=== PATIENT | female | born 1940 | race Two or more races ===

== ENCOUNTER 2017-09-26 12:51 | Inpatient (IN) | payer MEDICARE, OTHER ==
[~2017-09-26] VITALS: Ht 157.5 cm; Wt 68.9 kg
[2017-09-26] MEDS ORDERED: LORA0.5T (20:09)
[2017-09-26] MEDS ORDERED: GEMF600T3 PO (20:09)
[2017-09-26] MEDS ORDERED: MELO-105 (20:09)
[2017-09-26] MEDS ORDERED: OMEP20CA10 (20:09)
[2017-09-26] MEDS ORDERED: LEVO125T8 (20:16)
[2017-09-26] MEDS ORDERED: NITR1PAT66 (20:16)
[2017-09-26] MEDS ORDERED: ASPI-1169 (20:16)
[2017-09-26] MEDS ORDERED: TEMA30CA (20:16)
[2017-09-26] MEDS ORDERED: ISOS40TA12 (20:16)
[2017-09-26] MEDS ORDERED: BUPR-51 (20:16)
[2017-09-26] MEDS ORDERED: METO-358 (20:16)
[2017-09-26] MEDS ORDERED: HYDR-3972 (20:16)
[2017-09-26] MEDS ORDERED: FLUT16SP (20:16)
[2017-09-26] MEDS ORDERED: AMLO2.5T (20:16)
[2017-09-26] MEDS ORDERED: TRAZ-144 (20:16)
[2017-09-26] MEDS ORDERED: DIAZ5TAB4 (20:16)
[2017-09-26] MEDS ORDERED: QUET25TA (20:16)
[2017-09-26 20:30] VITALS: BP 184/68
[2017-09-26] MEDS ORDERED: MAGNESIUM HYDROXIDE 30 ML UDC PO PRN (21:30)
[2017-09-26] MEDS ORDERED: MAG HYDROX/AL HYDROX/SIMETH 30 ML UDC PO PRN (21:30)
[2017-09-26] MEDS ORDERED: TEMAZEPAM 15 MG CAPSULE PO PRN (22:00)
[2017-09-26] MEDS: METOPROLOL SUCCINATE 50 MG TAB.SR.24H PO SCH (22:00)
[2017-09-26 22:25] VITALS: BP 134/70
--- NOTE | 2017-09-27 01:27 | NUR ---
ADMISSION NOTES ADMITTED THIS 77Y/O FEMALE PATIENT ADMIT [facility]/ PT. IS ON 5150 HOLD FOR GD ,DTO , PER HOLD PT. IS CONFUSED, DISORGNIZE ,YELLING SCREAMING HITTING CAREGIVER , UPON FACE TO FACE ASSESSMENT PATIENT IS A&O X1,2 DISORGNIZE THOUGHTS AGRESSIVE YELLING PARANOID , PT. IS POOR HISTORIAN, POOR INSIGHT ,POOR JUDGEMENT , POOR HYGINE V/S WNL, NO ACUTE DISTRESS NOTED, HX OF BIPOLAR DISORDER ,INSOMNIA MAJOR DEPRESSIVE OSTEOARTHRITIS, HTN , HYPERLIPIDEMIA, HYPOTHYROIDISM , MD AWARE AND NOTIFIED OF THE ADMISSION, SKIN ASSESSMENT DONE . PICTURE TAKEN AND PLACED IN THE CHART, ENCOURAGED PT. VERBALIZED ANY FEELING CONCERN TO STAFF, ORIENT TO UNIT POLICY, WILL CONTINUE TO MONITOR FOR Q15 SAFETY AND BEHAVIOR.
--- NOTE | 2017-09-27 01:37 | NUR ---
GPS RN NOTES PT. REFUSED NIGHT MEDS TOPROL 100 MG ,AND REFUSED ACCU CHECK ,UPON ADMISSION, ENCOURAGED EXPLIANE RISKS AND BENEFITS, STILL REFUSED.
--- NOTE | 2017-09-27 02:46 | NUR ---
GPS RN NOTES AROUND 0246 PT. ALLOWED TO CHECK BLOOD SUGAR / AND BS WAS 201 , PT. STATED MY BLOOD IS FINE , I DON'T WANT ANY COVERAGE, NO ACUTE DISTRESS NOTED ,
[2017-09-27] MEDS: LORAZEPAM 1 MG TABLET PO PRN (03:44)
--- NOTE | 2017-09-27 06:55 | NUR ---
GPS RN NOTES DURING SHIFT OFFERED SLEEPING MEDS , PT. REFUSED TO TAKE , ENCOURAGED BUT PT. STATED DONT BOTHER ME .
[2017-09-27 08:00] VITALS: BP 133/62
[2017-09-27 08:41] LABS: BASOPHILS % (AUTO) 0.1 % (0.0-2.0); EOSINOPHILS % (AUTO) 1.6 % (0.0-6.0); HEMATOCRIT 44 % (33-45); HEMOGLOBIN 14.6 g/dL (11.5-14.8); LYMPHOCYTES # (AUTO) 1.3 /CMM (0.8-4.8); LYMPHOCYTES % (AUTO) 11.9 % (20.0-44.0); MEAN CORPUSCULAR HEMOGLOBIN 31 PG (26.0-33.0); MEAN CORPUSCULAR HGB CONC 34 g/dl (31.0-36.0); MEAN CORPUSCULAR VOLUME 94 fL (82-100); MONOCYTES # (AUTO) 1.3 /CMM (0.1-1.30); MONOCYTES % (AUTO) 11.8 % (2.0-12.0); NEUTROPHILS # (AUTO) 8.2 /CMM (1.8-8.9); NEUTROPHILS % (AUTO) 74.6 % (43.0-81.0); PLATELET COUNT (AUTO) 349 /CMM (150-450); RDW COEFFICIENT OF VARIATION 13.1 (11.5-15.0); RED BLOOD CELL COUNT(AUTO) 4.66 MIL/uL (4.0-5.2); WHITE BLOOD COUNT (AUTO) 10.9 K/uL (4.3-11.0)
[2017-09-27 08:58] LABS: ALANINE AMINOTRANSFERASE 30 U/L (12-78); ALBUMIN 4.3 g/dL (3.4-5.0); ALKALINE PHOSPHATASE 60 U/L (46-116); ASPARTATE AMINOTRANSFERASE 18 U/L (15-37); BILIRUBIN,TOTAL 0.7 mg/dL (0.2-1.0); CALCIUM, SERUM 9.9 mg/dL (8.5-10.1); CARBON DIOXIDE 23 mmol/L (21-32); CHLORIDE 100 mmol/L (98-107); CREATININE 0.9 mg/dL (0.6-1.3); GLUCOSE 114 mg/dL (74-106); POTASSIUM 4.1 mmol/L (3.5-5.1); SODIUM SERUM 134 mmol/L (136-145); TOTAL PROTEIN, SERUM 7.7 g/dL (6.4-8.2); UREA NITROGEN, BLOOD 22 mg/dL (7-18)
[2017-09-27] MEDS: ASPIRIN 81 MG TAB.CHEW PO SCH (09:01)
[2017-09-27] MEDS: GEMFIBROZIL 600 MG TABLET PO SCH ×2 (09:01→16:41)
[2017-09-27] MEDS: AMLODIPINE BESYLATE 2.5 MG TABLET PO SCH (09:01)
[2017-09-27] MEDS: LEVOTHYROXINE SODIUM 125 MCG TABLET PO SCH (09:01)
[2017-09-27] MEDS: MELOXICAM 7.5 MG TABLET PO SCH (09:01)
[2017-09-27] MEDS: PANTOPRAZOLE 40 MG TABLET.DR PO SCH (09:02)
[2017-09-27] MEDS: FLUTICASONE PROPIONATE 16 GM BOTTLE NS SCH (09:02)
[2017-09-27 09:03] LABS: CHOLESTEROL 190 mg/dL (<200); HDL CHOLESTEROL 53 mg/dL (40-60); LDL 119 mg/dL (0-99); TRIGLYCERIDES 168 mg/dL (30-150)
[2017-09-27 16:00] VITALS: BP 143/82
[2017-09-27] MEDS: QUETIAPINE FUMARATE 25 MG TABLET PO SCH (19:51)
[2017-09-27] MEDS: DIVALPROEX SODIUM 250 MG TABLET.DR PO SCH (19:56)
[2017-09-27] MEDS ORDERED: DEXTROSE 50%-WATER 50 ML DISP.SYRIN IV PRN (20:00)
[2017-09-27 20:12] VITALS: BP 146/85
[2017-09-27] MEDS: METOPROLOL SUCCINATE 50 MG TAB.SR.24H PO SCH (21:12)
[2017-09-27] MEDS: BLOOD SUGAR DIAGNOSTIC 1 EACH STRIP IN SCH (21:46)
[2017-09-27] MEDS: INSULIN REGULAR, HUMAN 100 UNIT/ML 3 ML VIAL SQ PRN (21:47)
[2017-09-27] MEDS: TEMAZEPAM 15 MG CAPSULE PO PRN (22:22)
[2017-09-28] MEDS: BLOOD SUGAR DIAGNOSTIC 1 EACH STRIP IN SCH ×4 (07:45→22:00)
[2017-09-28 08:00] VITALS: BP 109/55
[2017-09-28] MEDS: QUETIAPINE FUMARATE 25 MG TABLET PO SCH ×2 (08:17→16:01)
[2017-09-28] MEDS: DIVALPROEX SODIUM 250 MG TABLET.DR PO SCH ×3 (08:17→16:01)
[2017-09-28] MEDS: PANTOPRAZOLE 40 MG TABLET.DR PO SCH (08:17)
[2017-09-28] MEDS: GEMFIBROZIL 600 MG TABLET PO SCH ×2 (08:17→16:01)
[2017-09-28] MEDS: ASPIRIN 81 MG TAB.CHEW PO SCH (08:17)
[2017-09-28] MEDS: MELOXICAM 7.5 MG TABLET PO SCH (08:17)
[2017-09-28] MEDS: AMLODIPINE BESYLATE 2.5 MG TABLET PO SCH (08:18)
[2017-09-28] MEDS: LEVOTHYROXINE SODIUM 125 MCG TABLET PO SCH (08:18)
[2017-09-28] MEDS: buPROPion SR 150 MG TABLET.ER PO SCH (08:20)
[2017-09-28] MEDS: INSULIN REGULAR, HUMAN 100 UNIT/ML 3 ML VIAL SQ PRN ×2 (08:24→21:48)
[2017-09-28] MEDS: FLUTICASONE PROPIONATE 16 GM BOTTLE NS SCH (08:25)
[2017-09-28] MEDS: LORAZEPAM 1 MG TABLET PO PRN (13:10)
--- NOTE | 2017-09-28 13:15 | NUR ---
GPS/RN-NOTES NOTED PATIENT WITH EPISODE OF SCREAMING AND YELLING IN HER ROOM, UPON CHECKING WITH HER PATIENT IS LYING DOWN IN HER BED WITH BOTH EYES CLOSE MUMBLING AND TALKING TO SELF. OFFERED PATIENT TO EAT HER LUNCH BUT PATIENT STATED" I WILL EAT LATER". OFFERED ATIVAN AND AGREED. ATIVAN 1MG P.O GIVEN PRN ORDER. WILL CONT. MONITORING FOR SAFETY AND BEHAVIOR.
[2017-09-28 16:09] VITALS: BP 138/89
[2017-09-28 20:00] VITALS: BP 152/57
[2017-09-28] MEDS: METOPROLOL SUCCINATE 50 MG TAB.SR.24H PO SCH (21:44)
[2017-09-28] MEDS: TEMAZEPAM 15 MG CAPSULE PO PRN (21:45)
[2017-09-29] MEDS: PANTOPRAZOLE 40 MG TABLET.DR PO SCH (08:16)
[2017-09-29] MEDS: QUETIAPINE FUMARATE 25 MG TABLET PO SCH ×2 (08:16→16:26)
[2017-09-29] MEDS: DIVALPROEX SODIUM 250 MG TABLET.DR PO SCH ×3 (08:16→16:26)
[2017-09-29] MEDS: GEMFIBROZIL 600 MG TABLET PO SCH ×2 (08:16→16:26)
[2017-09-29] MEDS: buPROPion SR 150 MG TABLET.ER PO SCH (08:16)
[2017-09-29] MEDS: ASPIRIN 81 MG TAB.CHEW PO SCH (08:16)
[2017-09-29] MEDS: LEVOTHYROXINE SODIUM 125 MCG TABLET PO SCH (08:16)
[2017-09-29] MEDS: MELOXICAM 7.5 MG TABLET PO SCH (08:16)
[2017-09-29] MEDS: AMLODIPINE BESYLATE 2.5 MG TABLET PO SCH (08:17)
[2017-09-29 08:23] VITALS: BP 95/70
[2017-09-29] MEDS: FLUTICASONE PROPIONATE 16 GM BOTTLE NS SCH (08:27)
[2017-09-29] MEDS: BLOOD SUGAR DIAGNOSTIC 1 EACH STRIP IN SCH ×4 (08:29→21:50)
--- NOTE | 2017-09-29 12:19 | NUR ---
Initial Discharge Plan: Pt resides at [address] [place] [address], [place] [address] ([phone]) with her ore crushing dust collector, Diana Shook ([phone]). Per ore crushing dust collector, pt would like to return home. SYLWIA will work with the pt, the ore crushing dust collector and the MD regarding appropriate discharge plans. SW will form a safe and proper discharge.
[2017-09-29 16:19] VITALS: BP 153/66
[2017-09-29 20:00] VITALS: BP 137/70
[2017-09-29] MEDS: METOPROLOL SUCCINATE 50 MG TAB.SR.24H PO SCH (21:51)
[2017-09-29] MEDS: TEMAZEPAM 15 MG CAPSULE PO PRN (21:51)
[2017-09-30 08:00] VITALS: BP 130/69
[2017-09-30] MEDS: FLUTICASONE PROPIONATE 16 GM BOTTLE NS SCH (08:22)
[2017-09-30] MEDS: ASPIRIN 81 MG TAB.CHEW PO SCH (08:23)
[2017-09-30] MEDS: GEMFIBROZIL 600 MG TABLET PO SCH ×2 (08:23→17:33)
[2017-09-30] MEDS: PANTOPRAZOLE 40 MG TABLET.DR PO SCH (08:23)
[2017-09-30] MEDS: LEVOTHYROXINE SODIUM 125 MCG TABLET PO SCH (08:23)
[2017-09-30] MEDS: buPROPion SR 150 MG TABLET.ER PO SCH (08:23)
[2017-09-30] MEDS: MELOXICAM 7.5 MG TABLET PO SCH (08:23)
[2017-09-30] MEDS: DIVALPROEX SODIUM 250 MG TABLET.DR PO SCH ×3 (08:23→17:33)
[2017-09-30] MEDS: QUETIAPINE FUMARATE 25 MG TABLET PO SCH ×2 (08:23→17:33)
[2017-09-30] MEDS: BLOOD SUGAR DIAGNOSTIC 1 EACH STRIP IN SCH ×4 (08:24→21:43)
[2017-09-30] MEDS: AMLODIPINE BESYLATE 2.5 MG TABLET PO SCH (08:24)
--- NOTE | 2017-09-30 14:46 | NUR ---
At 1400 staff found pt. lying in the floor and awake. Per pt. she fell from the cross and hit her head. Pt. able to stand with staffs assistance. V/S taken: BP 164/73, NH 73, RR 18, temp. 97.4, oxygen sat of 99% and BS 149. Skin assessment, no abrasions, no wound noted and pt. is complaining on headache. Roger notified and ordered stat CT of the head without contrast. Dr. Yates made aware, Diana Shook notified and supervisor brew house notified.
[2017-09-30 16:07] VITALS: BP 162/64
--- NOTE | 2017-09-30 18:00 | NUR ---
GPS/RN PT REFUSED ACCUCHECK BUT TOOK 1700 MEDS. PT IS PARANOID AND CLAIMS TO TALK TO "OUR LORD SERENE". ACCOMPANIED PT TO ACTIVITY ROOM FOR DINNER, REGI PROVIDED FOR SAFETY
[2017-09-30 20:00] VITALS: BP 130/59
[2017-09-30] MEDS: TEMAZEPAM 15 MG CAPSULE PO PRN (21:44)
[2017-09-30] MEDS: METOPROLOL SUCCINATE 50 MG TAB.SR.24H PO SCH (21:44)
[2017-10-01] VITALS (7 sets, daily range): BP systolic 105–200; BP diastolic 47–96
[2017-10-01] MEDS: PANTOPRAZOLE 40 MG TABLET.DR PO SCH ×2 (07:30→08:45)
[2017-10-01] MEDS: BLOOD SUGAR DIAGNOSTIC 1 EACH STRIP IN SCH ×4 (08:11→21:47)
[2017-10-01] MEDS: INSULIN REGULAR, HUMAN 100 UNIT/ML 3 ML VIAL SQ PRN ×2 (08:13→22:00)
[2017-10-01] MEDS: DIVALPROEX SODIUM 250 MG TABLET.DR PO SCH ×4 (08:45→16:57)
[2017-10-01] MEDS: MELOXICAM 7.5 MG TABLET PO SCH ×2 (08:45→09:00)
[2017-10-01] MEDS: LEVOTHYROXINE SODIUM 125 MCG TABLET PO SCH (08:45)
[2017-10-01] MEDS: QUETIAPINE FUMARATE 25 MG TABLET PO SCH ×3 (08:45→16:58)
[2017-10-01] MEDS: ASPIRIN 81 MG TAB.CHEW PO SCH (08:45)
[2017-10-01] MEDS: GEMFIBROZIL 600 MG TABLET PO SCH ×2 (08:45→16:57)
[2017-10-01] MEDS: buPROPion SR 150 MG TABLET.ER PO SCH ×2 (08:45→09:00)
[2017-10-01] MEDS: AMLODIPINE BESYLATE 2.5 MG TABLET PO SCH (08:48)
[2017-10-01] MEDS: FLUTICASONE PROPIONATE 16 GM BOTTLE NS SCH (09:00)
[2017-10-01] MEDS: ACETAMINOPHEN 325 MG TABLET PO PRN (09:16)
--- NOTE | 2017-10-01 09:16 | NUR ---
rn notes administered Tylenol 650 mg po prn for headache, patient selective with medication, v/s taken bp- 155/94, p-68, patient anxious, also complaining of dizziness, call lees near to reach, bed alarm on, safety precaution maintained all the time.
--- NOTE | 2017-10-01 13:00 | NUR ---
RN NOTES PATIENT VERY ANXIOUS, OFFERED ATIVAN REFUSED ALSO REFUSED SCHEDULED PSYCH MEDICATION. RETAKEN ORTHOSTATIC V/S TAKEN SITTING BP -184/87, P-63 , STANDING BP-200/74, P-69, SUPINE BP-192/90, P-68. PAGED DR TO AND WAITING FOR RESPOND.
--- NOTE | 2017-10-01 15:00 | NUR ---
RN NOTES PATIENT CALM AT THIS TIME BP 143/96, P-65, NO ACUTE DISTRESS CONTINUED MONITORING.
--- NOTE | 2017-10-01 17:26 | NUR ---
RN NOTES PATIENT STABLE AT THIS TIME, CALM, REDIRECTABLE, ENCOURAGED TO EXPRESS FEELINGS AND CONCERNS. REFUSED SCHEDULED MEDICATION, PATIENT DENIED SI/HI AT THIS TIME, CALL LINDO NEAR TO REACH, CONTINUED MONITORING.
[2017-10-01] MEDS: METOPROLOL SUCCINATE 50 MG TAB.SR.24H PO SCH (21:49)
[2017-10-01] MEDS: TEMAZEPAM 15 MG CAPSULE PO PRN (22:03)
[2017-10-02] MEDS: BLOOD SUGAR DIAGNOSTIC 1 EACH STRIP IN SCH ×4 (07:30→22:59)
[2017-10-02 08:00] VITALS: BP 160/88
--- NOTE | 2017-10-02 08:00 | NUR ---
GPS/RN BS 159,2 UNITS REGULAR INSULIN GIVEN.
[2017-10-02] MEDS: PANTOPRAZOLE 40 MG TABLET.DR PO SCH (08:30)
[2017-10-02] MEDS: QUETIAPINE FUMARATE 25 MG TABLET PO SCH ×2 (08:30→16:03)
[2017-10-02] MEDS: GEMFIBROZIL 600 MG TABLET PO SCH ×2 (08:30→16:02)
[2017-10-02] MEDS: ASPIRIN 81 MG TAB.CHEW PO SCH (08:30)
[2017-10-02] MEDS: DIVALPROEX SODIUM 250 MG TABLET.DR PO SCH ×3 (08:31→16:02)
[2017-10-02] MEDS: buPROPion SR 150 MG TABLET.ER PO SCH (08:31)
[2017-10-02] MEDS: MELOXICAM 7.5 MG TABLET PO SCH (08:31)
[2017-10-02] MEDS: LEVOTHYROXINE SODIUM 125 MCG TABLET PO SCH (08:31)
[2017-10-02] MEDS: AMLODIPINE BESYLATE 2.5 MG TABLET PO SCH (08:31)
[2017-10-02] MEDS: FLUTICASONE PROPIONATE 16 GM BOTTLE NS SCH (08:45)
[2017-10-02] MEDS: INSULIN REGULAR, HUMAN 100 UNIT/ML 3 ML VIAL SQ PRN (08:45)
--- NOTE | 2017-10-02 09:44 | NUR ---
SW spoke to Talia ([phone]), hospital liaison, and discussed home health options and transportation upon discharge for the pt.
--- NOTE | 2017-10-02 09:45 | NUR ---
SYLWIA spoke to Diana Shook ([phone]), pt's cylinder machine operator, about home health options and psychiatrist referrals. Addendum: 10/04/17 at 1101 by DELLA DAO SYLWIA provided the caregiver with these three options: [facility] ([phone]) [facility] ([phone]) [facility] ([phone])
[2017-10-02] MEDS: LORAZEPAM 1 MG TABLET PO PRN ×2 (13:02→20:51)
--- NOTE | 2017-10-02 13:02 | NUR ---
GPS/RN PATIENT IS EXTREMELY ANXIOUS, YELLING, HYPERVERBAL, AND UNABLE TO REDIRECT AT THIS TIME. ADMINISTERED ATIVAN 0.5 MG , WILL CONTINUE TO MONITOR Addendum: 10/02/17 at 1323 by DAVID DUNBAR RN ATIVAN 1 MG ADMINISTERED
--- NOTE | 2017-10-02 13:15 | NUR ---
SW spoke to Diana Shook ([phone]), pt's transistor tester, who stated that she got approval to visit the pt outside of visiting hours.
[2017-10-02] MEDS ORDERED: HALOPERIDOL LACTATE INJ 5 MG/ML VIAL IM STA (15:56)
[2017-10-02] MEDS ORDERED: LORAZEPAM INJ 2 MG/ML VIAL IM STA (15:57)
[2017-10-02 16:00] VITALS: BP 155/74
--- NOTE | 2017-10-02 16:07 | NUR ---
GPS/RN PATIENT PRESENTS WITH ACUTE ANXIETY, BANGING HER ARMS ON THE SIDE OF BED, YELLING, KICKING, STRIKING OUT AT STAFF, UNABLE TO REDIRECT, DR SAHNI AWARE, NEW ORDER OF ATIVAN 1 MG IM X 1, HALDOL 2 MG X 1 IM, ADMINISTERED ORDERED., WILL CONTINUE TO MONITOR.
--- NOTE | 2017-10-02 16:59 | NUR ---
GPS/RN PATIENT REFUSED BS CHECK X 3, EXPLAINED RISKS AND BENEFITS, WILL CONTINUE TO MONITOR.
[2017-10-02 20:18] VITALS: BP 134/62
[2017-10-02] MEDS: METOPROLOL SUCCINATE 50 MG TAB.SR.24H PO SCH (20:50)
[2017-10-02] MEDS: TEMAZEPAM 15 MG CAPSULE PO PRN (20:51)
--- NOTE | 2017-10-03 08:00 | NUR ---
GPS/RN BS 129, NO COVERAGE NEEDED.
[2017-10-03 08:05] VITALS: BP 150/69
[2017-10-03] MEDS: GEMFIBROZIL 600 MG TABLET PO SCH ×2 (08:41→16:38)
[2017-10-03] MEDS: LEVOTHYROXINE SODIUM 125 MCG TABLET PO SCH (08:41)
[2017-10-03] MEDS: DIVALPROEX SODIUM 250 MG TABLET.DR PO SCH ×3 (08:41→16:38)
[2017-10-03] MEDS: MELOXICAM 7.5 MG TABLET PO SCH (08:41)
[2017-10-03] MEDS: FLUTICASONE PROPIONATE 16 GM BOTTLE NS SCH (08:41)
[2017-10-03] MEDS: buPROPion SR 150 MG TABLET.ER PO SCH (08:41)
[2017-10-03] MEDS: ASPIRIN 81 MG TAB.CHEW PO SCH (08:41)
[2017-10-03] MEDS: BLOOD SUGAR DIAGNOSTIC 1 EACH STRIP IN SCH ×4 (08:41→21:30)
[2017-10-03] MEDS: QUETIAPINE FUMARATE 100 MG TABLET PO SCH ×2 (08:55→16:38)
[2017-10-03] MEDS: AMLODIPINE BESYLATE 10 MG TABLET PO SCH (08:55)
[2017-10-03] MEDS: PANTOPRAZOLE 40 MG TABLET.DR PO SCH (08:55)
--- NOTE | 2017-10-03 11:23 | NUR ---
SW spoke to Dinaa Shook ([phone]), pt's channel sales manager, and she stated that she does not think home health is a good option for the pt upon most recent visit. Supervisor [place] asked that the SW refer the pt to a facility.
--- NOTE | 2017-10-03 12:00 | NUR ---
GPS/RN PATIENT REFUSED BS CHECK X 3, EXPLAINED RISKS AND BENEFITS, WILL CONTINUE TO MONITOR.
--- NOTE | 2017-10-03 13:08 | NUR ---
SW spoke to Diana Shook ([phone]), pt's reservoir caretaker, who stated that she wants a facility up in the [facility] but would accept something in the [place] area.
[2017-10-03 16:30] VITALS: BP 148/90
--- NOTE | 2017-10-03 17:00 | NUR ---
GPS/RN BS 112, NO COVERAGE NEEDED.
[2017-10-03 20:24] VITALS: BP 144/61
[2017-10-03] MEDS: METOPROLOL SUCCINATE 50 MG TAB.SR.24H PO SCH (21:23)
--- NOTE | 2017-10-03 21:31 | NUR ---
GPS-RN PATIENT REFUSED SCHEDULED DEPAKOTE AT HS. OFFERED X3, EXPLAINED RISKS AND BENEFITS BUT PT REFUSED. WILL CONTINUE TO MONITOR.
[2017-10-03] MEDS ORDERED: DIVALPROEX SODIUM 500 MG TABLET.DR PO SCH (22:00)
[2017-10-04] MEDS: ACETAMINOPHEN 325 MG TABLET PO PRN ×2 (00:01→09:18)
[2017-10-04] MEDS: LORAZEPAM 1 MG TABLET PO PRN ×3 (00:52→21:53)
--- NOTE | 2017-10-04 00:52 | NUR ---
GPS-RN PATIENT IS ANXIOUS AND RESTLESS. VSS. ADMINISTERED ATIVAN 1MG PO ORDERED. WILL CONTINUE TO MONITOR Q15MIN ROUNDS FOR SAFETY.
[2017-10-04] MEDS: BLOOD SUGAR DIAGNOSTIC 1 EACH STRIP IN SCH ×4 (07:30→21:26)
[2017-10-04 08:17] VITALS: BP 142/65
--- NOTE | 2017-10-04 08:32 | NUR ---
RN NOTE: ACCUCHECK AT 174. PATIENT REFUSED INSULIN. OFFERED 3X. STATES THE LEVEL WILL GO DOWN AND WANTS TO CHECK LEVELS AT NOON.
[2017-10-04] MEDS: DIVALPROEX SODIUM 250 MG TABLET.DR PO SCH ×2 (09:00→09:19)
[2017-10-04] MEDS: ASPIRIN 81 MG TAB.CHEW PO SCH (09:19)
[2017-10-04] MEDS: LEVOTHYROXINE SODIUM 125 MCG TABLET PO SCH (09:19)
[2017-10-04] MEDS: AMLODIPINE BESYLATE 10 MG TABLET PO SCH (09:19)
[2017-10-04] MEDS: MELOXICAM 7.5 MG TABLET PO SCH (09:20)
[2017-10-04] MEDS: PANTOPRAZOLE 40 MG TABLET.DR PO SCH (09:20)
[2017-10-04] MEDS: QUETIAPINE FUMARATE 100 MG TABLET PO SCH ×2 (09:20→16:46)
[2017-10-04] MEDS: FLUTICASONE PROPIONATE 16 GM BOTTLE NS SCH (09:20)
[2017-10-04] MEDS: buPROPion SR 150 MG TABLET.ER PO SCH (09:20)
[2017-10-04] MEDS: GEMFIBROZIL 600 MG TABLET PO SCH ×2 (09:20→16:46)
--- NOTE | 2017-10-04 10:21 | NUR ---
SYLWIA spoke to Talia ([phone]), hospital liaison, and updated her on the discharge plan.
--- NOTE | 2017-10-04 11:06 | NUR ---
SYLWIA spoke to Arlyn ([phone]) from [facility] and faxed a placement referral per Dr. Norwood.
[2017-10-04] MEDS ORDERED: DIVALPROEX SODIUM 250 MG TABLET.DR PO SCH (13:00)
--- NOTE | 2017-10-04 14:05 | NUR ---
RN NOTE: ACCUCHECK 132. PATIENT REFUSED COVERAGE. OFFERED 3X.
--- NOTE | 2017-10-04 14:29 | NUR ---
SYLWIA spoke to Diana Shook ([phone]), pt's color checker roving or yarn, and informed her about the referral that was sent to [facility] per the psychiatrist, Dr. Norwood. SYLWIA also informed her that a letter of incompetence would have to be attained by the psychiatrist.
--- NOTE | 2017-10-04 15:28 | NUR ---
Arlyn ([phone]) from [facility] informed the that this placement was denied.
[2017-10-04 15:52] VITALS: BP 115/55
--- NOTE | 2017-10-04 17:31 | NUR ---
RN NOTE: PATIENT ACCUCHECK 133. REFUSED COVERAGE. OFFERED 3X.
[2017-10-04 20:40] VITALS: BP_SYST 120; BP_SYST 150; BP_DIAS 57; BP_DIAS 63
[2017-10-04 20:51] VITALS: BP 120/57
[2017-10-04] MEDS: METOPROLOL SUCCINATE 50 MG TAB.SR.24H PO SCH (21:11)
--- NOTE | 2017-10-04 21:53 | NUR ---
GPS -RN PATIENT IS ANXIOUS AND RESTLESS. VSS. ADMINISTERED ATIVAN 1MG PO ORDERED. WILL CONTINUE TO MONITOR.
[2017-10-05] MEDS: BLOOD SUGAR DIAGNOSTIC 1 EACH STRIP IN SCH ×4 (06:45→22:46)
[2017-10-05 08:00] VITALS: BP 130/70
[2017-10-05] MEDS: AMLODIPINE BESYLATE 10 MG TABLET PO SCH (08:22)
[2017-10-05] MEDS: ASPIRIN 81 MG TAB.CHEW PO SCH (08:22)
[2017-10-05] MEDS: GEMFIBROZIL 600 MG TABLET PO SCH ×2 (08:22→16:19)
[2017-10-05] MEDS: LEVOTHYROXINE SODIUM 125 MCG TABLET PO SCH (08:22)
[2017-10-05] MEDS: QUETIAPINE FUMARATE 100 MG TABLET PO SCH ×3 (08:22→16:19)
[2017-10-05] MEDS: buPROPion SR 150 MG TABLET.ER PO SCH ×2 (08:23→09:00)
[2017-10-05] MEDS: MELOXICAM 7.5 MG TABLET PO SCH (08:23)
[2017-10-05] MEDS: CARBAMAZEPINE 200 MG TABLET PO SCH ×2 (08:24→16:19)
[2017-10-05] MEDS: FLUTICASONE PROPIONATE 16 GM BOTTLE NS SCH (08:25)
[2017-10-05] MEDS: PANTOPRAZOLE 40 MG TABLET.DR PO SCH (08:26)
--- NOTE | 2017-10-05 11:29 | NUR ---
SYLWIA faxed two referrals for this pt: Martínez from [facility] ([phone]) [facility] ([phone])
--- NOTE | 2017-10-05 12:11 | NUR ---
Emily from [facility] ([phone]) is interested in the pt and is willing to accept her upon discharge.
[2017-10-05 16:06] VITALS: BP 147/73
[2017-10-05] MEDS: ACETAMINOPHEN 325 MG TABLET PO PRN (16:42)
[2017-10-05 20:00] VITALS: BP 118/59
[2017-10-05] MEDS: METOPROLOL SUCCINATE 50 MG TAB.SR.24H PO SCH (21:07)
[2017-10-05 22:45] VITALS: BP 110/48
[2017-10-05] MEDS: TEMAZEPAM 15 MG CAPSULE PO PRN (22:46)
[2017-10-05] MEDS: INSULIN REGULAR, HUMAN 100 UNIT/ML 3 ML VIAL SQ PRN (22:47)
[2017-10-06 04:00] VITALS: BP 135/57
--- NOTE | 2017-10-06 07:00 | NUR ---
DICK LENZ INITIAL NOTES RECEIVED PT FROM PM NURSE. PT RESTING IN BED, NO SIGS OF DISTRESS OR SOB, ON RA SAT ABOVE 94%, A&O X02-3 WITH SOME CONFUSION AT TIMES, BRP, 04/17 SITTER AT BEDSIDE, NO IV ACCESS, ALL SAFETY MEASURES INITIATED, 5250 HOLD UNTIL 10/12/17, WILL CONTINUE TO MONITOR.
[2017-10-06] MEDS: BLOOD SUGAR DIAGNOSTIC 1 EACH STRIP IN SCH ×4 (08:35→22:01)
[2017-10-06] MEDS: PANTOPRAZOLE 40 MG TABLET.DR PO SCH (08:35)
[2017-10-06] MEDS: LEVOTHYROXINE SODIUM 125 MCG TABLET PO SCH (08:36)
[2017-10-06] MEDS: buPROPion SR 150 MG TABLET.ER PO SCH (08:37)
[2017-10-06] MEDS: GEMFIBROZIL 600 MG TABLET PO SCH ×2 (08:45→16:17)
[2017-10-06] MEDS: ASPIRIN 81 MG TAB.CHEW PO SCH (08:45)
[2017-10-06] MEDS: MELOXICAM 7.5 MG TABLET PO SCH (08:45)
[2017-10-06] MEDS: AMLODIPINE BESYLATE 10 MG TABLET PO SCH (08:45)
[2017-10-06] MEDS: CARBAMAZEPINE 200 MG TABLET PO SCH ×2 (08:52→16:17)
[2017-10-06] MEDS: FLUTICASONE PROPIONATE 16 GM BOTTLE NS SCH (09:12)
[2017-10-06] MEDS: INSULIN REGULAR, HUMAN 100 UNIT/ML 3 ML VIAL SQ PRN ×2 (09:15→16:51)
[2017-10-06] MEDS: ACETAMINOPHEN 325 MG TABLET PO PRN ×2 (09:46→16:49)
--- NOTE | 2017-10-06 10:05 | NUR ---
SYLWIA spoke to Diana Shook ([phone]), pt's marketing secretary, and discussed how she wants a note stating that the pt cannot handle her finances from the psychiatrist.
[2017-10-06 12:00] VITALS: BP 143/79
--- NOTE | 2017-10-06 12:15 | NUR ---
DICK LENZ NOTES PT COMPLAINS OF GRASPING FOR AIR AND HARD OF BREATHING, CHECKED O2 SAT ON ROOM AIR 92%, AFTER GIVING 2L OF OXYGEN NOW SAT 99%, PT SAYS FEELS A LOT BETTER.
[2017-10-06 16:00] VITALS: BP 153/58
[2017-10-06 20:00] VITALS: BP 160/75
[2017-10-06] MEDS: METOPROLOL SUCCINATE 50 MG TAB.SR.24H PO SCH (21:36)
--- NOTE | 2017-10-06 21:36 | NUR ---
BP 160/75, HR 83, ROUTINE BP MEDS METOPROLOL 100 MG TAB PO GIVEN.
[2017-10-06] MEDS: TEMAZEPAM 15 MG CAPSULE PO PRN (21:38)
--- NOTE | 2017-10-06 21:38 | NUR ---
TEMAZEPAM 15 MG CAP 1 PO GIVEN FOR SLEEP.
--- NOTE | 2017-10-06 21:46 | NUR ---
REUSED TEMAZEPAM, ATIVAN 1 MG TAB 1 PO GIVEN PER REQUEST.
--- NOTE | 2017-10-06 22:01 | NUR ---
ACCUCHECK 125 MG/DL, NO INSULIN DUE AT THIS TIME.
[2017-10-06] MEDS: LORAZEPAM 1 MG TABLET PO PRN (22:02)
[2017-10-07] MEDS: BLOOD SUGAR DIAGNOSTIC 1 EACH STRIP IN SCH ×2 (07:49→11:42)
[2017-10-07 08:00] VITALS: BP 139/61
--- NOTE | 2017-10-07 08:00 | NUR ---
AM RN NOTE BS 152 MG/DL, PT REFUSED SLIDING SCALE, STATED "I DON'T TAKE ANY INSULIN". EXPLAINED RISKS AND BENEFITS BUT STILL REFUSED.
[2017-10-07] MEDS: PANTOPRAZOLE 40 MG TABLET.DR PO SCH (08:08)
[2017-10-07] MEDS: LEVOTHYROXINE SODIUM 125 MCG TABLET PO SCH (08:09)
[2017-10-07] MEDS: buPROPion SR 150 MG TABLET.ER PO SCH (08:09)
[2017-10-07] MEDS: MELOXICAM 7.5 MG TABLET PO SCH (08:09)
[2017-10-07] MEDS: CARBAMAZEPINE 200 MG TABLET PO SCH ×2 (08:09→17:12)
[2017-10-07] MEDS: GEMFIBROZIL 600 MG TABLET PO SCH ×2 (08:09→17:12)
[2017-10-07] MEDS: ASPIRIN 81 MG TAB.CHEW PO SCH (08:09)
[2017-10-07] MEDS: AMLODIPINE BESYLATE 10 MG TABLET PO SCH (08:10)
[2017-10-07] MEDS: FLUTICASONE PROPIONATE 16 GM BOTTLE NS SCH ×2 (08:11→10:22)
[2017-10-07] MEDS: ACETAMINOPHEN 325 MG TABLET PO PRN (10:55)
[2017-10-07 16:00] VITALS: BP 135/76
--- NOTE | 2017-10-07 19:13 | NUR ---
AM RN NOTE PT AWAKE, C/O INDIGESTION, PRN MYLANTA GIVEN AND CARE ENDORSED TO NEXT SHIFT.
[2017-10-07 20:00] VITALS: BP_SYST 116; BP_SYST 120; BP_DIAS 55; BP_DIAS 69
[2017-10-07] MEDS: METOPROLOL SUCCINATE 50 MG TAB.SR.24H PO SCH (21:11)
--- NOTE | 2017-10-08 00:17 | NUR ---
Pt has been a bit anxious at times but compliant & redirectable.
[2017-10-08 08:00] VITALS: BP 130/55
[2017-10-08] MEDS: GEMFIBROZIL 600 MG TABLET PO SCH ×2 (08:48→16:25)
[2017-10-08] MEDS: PANTOPRAZOLE 40 MG TABLET.DR PO SCH (08:50)
[2017-10-08] MEDS: AMLODIPINE BESYLATE 10 MG TABLET PO SCH (08:50)
[2017-10-08] MEDS: LEVOTHYROXINE SODIUM 125 MCG TABLET PO SCH (08:50)
[2017-10-08] MEDS: ASPIRIN 81 MG TAB.CHEW PO SCH (08:50)
[2017-10-08] MEDS: MELOXICAM 7.5 MG TABLET PO SCH (08:50)
[2017-10-08] MEDS: CARBAMAZEPINE 200 MG TABLET PO SCH ×2 (08:51→16:25)
[2017-10-08] MEDS: buPROPion SR 150 MG TABLET.ER PO SCH (08:51)
[2017-10-08] MEDS: FLUTICASONE PROPIONATE 16 GM BOTTLE NS SCH (08:51)
[2017-10-08] MEDS: ACETAMINOPHEN 325 MG TABLET PO PRN (11:16)
[2017-10-08 16:00] VITALS: BP 180/68
--- NOTE | 2017-10-08 18:22 | NUR ---
RN. CLOSING. PT RESTING IN BED. PT WITH A CONSTELLATION OF MALADIES THROUGHOUT SHIFT, ALL RESOLVED WITH REASSURANCE AND CALM ENGAGEMENT. PT VOCALIZING DELUSIONS. PT COOPERATIVE. ALL DAY NURSE DUTIES ATTENDED TO AND PT IS WITHOUT CONCERN OR COMPLAINT AT THIS TIME.
[2017-10-08 20:20] VITALS: BP 147/62
[2017-10-08] MEDS: METOPROLOL SUCCINATE 50 MG TAB.SR.24H PO SCH (21:15)
[2017-10-09] MEDS: GEMFIBROZIL 600 MG TABLET PO SCH ×2 (08:16→16:51)
[2017-10-09] MEDS: MELOXICAM 7.5 MG TABLET PO SCH (08:16)
[2017-10-09] MEDS: buPROPion SR 150 MG TABLET.ER PO SCH (08:16)
[2017-10-09] MEDS: PANTOPRAZOLE 40 MG TABLET.DR PO SCH (08:16)
[2017-10-09] MEDS: LEVOTHYROXINE SODIUM 125 MCG TABLET PO SCH (08:16)
[2017-10-09] MEDS: AMLODIPINE BESYLATE 10 MG TABLET PO SCH (08:16)
[2017-10-09] MEDS: ASPIRIN 81 MG TAB.CHEW PO SCH (08:16)
[2017-10-09] MEDS: ACETAMINOPHEN 325 MG TABLET PO PRN (08:20)
[2017-10-09] MEDS: CARBAMAZEPINE 200 MG TABLET PO SCH ×3 (08:20→16:51)
[2017-10-09] MEDS: risperiDONE 1 MG TABLET PO SCH ×2 (08:20→16:51)
[2017-10-09] MEDS: FLUTICASONE PROPIONATE 16 GM BOTTLE NS SCH (08:21)
[2017-10-09 08:46] VITALS: BP 144/55
--- NOTE | 2017-10-09 12:15 | NUR ---
SYLWIA faxed two referrals for this pt per Dr. Norwood's request: [facility]: [phone] [facility]: [phone]
--- NOTE | 2017-10-09 12:17 | NUR ---
Sadia from [facility] ([phone]) called the SW and stated that the pt was denied.
--- NOTE | 2017-10-09 13:41 | NUR ---
Dolores ([phone]) from [facility] called the SW and asked if she could forward the pt's referral to [place].
[2017-10-09 16:00] VITALS: BP 128/57
--- NOTE | 2017-10-09 19:30 | NUR ---
RN NOTES RECEIVED PATIENT IN BED AWAKE, AO X 3, ABLE TO MAKE NEEDS KNOWN. NO ACUTE DISTRESS NOTED. DENIES ANY PAIN AT THIS TIME. DENIES SUICIDAL IDEATIONS. PER PATIENT, "I FEEL GOOD." SAFETY REMINDERS GIVEN. ON LOW BED WITH BILATERAL UPPER SIDE RAILS UP. CALL LINDO WITHIN EASY REACH. WILL CONTINUE TO MONITOR.
[2017-10-09 20:00] VITALS: BP 130/64
[2017-10-09] MEDS: METOPROLOL SUCCINATE 50 MG TAB.SR.24H PO SCH (21:13)
--- NOTE | 2017-10-10 06:45 | NUR ---
RN NOTES PATIENT AWAKE. RESPIRATIONS EVEN. NO SIGNS OF PAIN NOTED. DUE MED GIVEN WITH NO ASE NOTE. NEEDS ATTENDED. KEPT CLEAN, DRY, AND COMFORTABLE. SAFETY PRECAUTIONS AND COMFORT MEASURES IN PLACE. WILL GIVE REPORT TO DAY SHIFT FOR CONTINUITY OF CARE.
[2017-10-10] MEDS: LEVOTHYROXINE SODIUM 125 MCG TABLET PO SCH (07:30)
[2017-10-10] MEDS: PANTOPRAZOLE 40 MG TABLET.DR PO SCH (07:30)
[2017-10-10 09:02] VITALS: BP 140/55
[2017-10-10] MEDS: CARBAMAZEPINE 200 MG TABLET PO SCH ×3 (09:12→17:48)
[2017-10-10] MEDS: GEMFIBROZIL 600 MG TABLET PO SCH ×2 (09:13→17:49)
[2017-10-10] MEDS: buPROPion SR 150 MG TABLET.ER PO SCH (09:13)
[2017-10-10] MEDS: ASPIRIN 81 MG TAB.CHEW PO SCH (09:13)
[2017-10-10] MEDS: AMLODIPINE BESYLATE 10 MG TABLET PO SCH (09:13)
[2017-10-10] MEDS: MELOXICAM 7.5 MG TABLET PO SCH (09:17)
[2017-10-10] MEDS: risperiDONE 1 MG TABLET PO SCH ×2 (09:17→17:48)
[2017-10-10] MEDS: FLUTICASONE PROPIONATE 16 GM BOTTLE NS SCH (09:17)
--- NOTE | 2017-10-10 11:42 | NUR ---
SW spoke to Diana Shook ([phone]), pt's landscape supervisor, and discussed the pt being discharged on .
--- NOTE | 2017-10-10 11:59 | NUR ---
SYLWIA spoke to Elena ([phone]) at [facility] and will fax a referral to ([phone]).
--- NOTE | 2017-10-10 12:01 | NUR ---
SW spoke to Bertha at [facility] ([phone]) and will fax a referral to ([phone]).
--- NOTE | 2017-10-10 12:04 | NUR ---
SW spoke to GG and discussed the pt being transported via Triage ([phone]).
[2017-10-10 16:00] VITALS: BP 136/59
[2017-10-10 20:32] VITALS: BP 147/64
[2017-10-10] MEDS: LORAZEPAM 1 MG TABLET PO PRN (21:11)
--- NOTE | 2017-10-10 21:11 | NUR ---
GPS-RN PATIENT C/O FEELING ANXIOUS AND REQUESTING FOR ATIVAN. ADMINISTERED ATIVAN 1MG PO ORDERED. WILL CONTINUE TO MONITOR.
[2017-10-10] MEDS: METOPROLOL SUCCINATE 50 MG TAB.SR.24H PO SCH (21:41)
[2017-10-11] MEDS: PANTOPRAZOLE 40 MG TABLET.DR PO SCH (07:30)
[2017-10-11] MEDS: LEVOTHYROXINE SODIUM 125 MCG TABLET PO SCH (07:30)
[2017-10-11 08:00] VITALS: BP 141/67
[2017-10-11] MEDS: CARBAMAZEPINE 200 MG TABLET PO SCH ×3 (09:18→17:34)
[2017-10-11] MEDS: risperiDONE 1 MG TABLET PO SCH ×2 (09:18→17:34)
[2017-10-11] MEDS: MELOXICAM 7.5 MG TABLET PO SCH (09:18)
[2017-10-11] MEDS: GEMFIBROZIL 600 MG TABLET PO SCH ×2 (09:19→17:34)
[2017-10-11] MEDS: AMLODIPINE BESYLATE 10 MG TABLET PO SCH (09:19)
[2017-10-11] MEDS: ASPIRIN 81 MG TAB.CHEW PO SCH (09:20)
[2017-10-11] MEDS: FLUTICASONE PROPIONATE 16 GM BOTTLE NS SCH (09:21)
[2017-10-11] MEDS: buPROPion SR 150 MG TABLET.ER PO SCH (09:27)
--- NOTE | 2017-10-11 09:49 | NUR ---
SW spoke to Diana Shook ([phone]), pt's bias cutting machine operator vertical, and stated that the SW is still waiting to hear back from You Johns and Paul Gastelum. If there is no word by the end of the day today, then the pt will go to [facility].
--- NOTE | 2017-10-11 12:30 | NUR ---
SYLWIA called the DON from [facility] ([phone]) and discussed the pt being discharged and arriving to her facility at 11am tomorrow.
[2017-10-11 16:00] VITALS: BP 136/57
--- NOTE | 2017-10-11 19:30 | NUR ---
GPS RN NOTE, RECEIVED PATIENT AWAKE AND IN BED, NO S/S OR COMPLAINTS OF PAIN AT THIS TIME. PATIENT IS DISPLAYING NO S/S OF APPARENT DISTRESS AT THIS TIME. PATIENT BREATHING IS UNLABORED WITH EQUAL RISE AND FALL OF THE CHEST. PATIENT IS ALERT AND ORIENTED X 3 ON ROOM AIR WITH A SPO2 96%. PATIENT IS MED COMPLIANT, FIXATED ON GOING HOME, COOPERATIVE, ANXIOUS AT TIMES, AND NEEDS REORIENTATION. PATIENT DENIES SUICIDE IDEATIONS AND HOMICIDAL IDEATIONS AT THIS TIME. PATIENT ASSISTED WITH TURNING AND REPOSITIONING Q2 HR AND PRN FOR COMFORT AND CIRCULATION. PATIENT HAS NO NEEDS AT THIS TIME. PATIENT EDUCATED ON THE USE OF THE CALL LINDO. PATIENT BED SIDE RAILS UP X 2 FOR SAFETY, BED LOCKED AND LOW WILL CONTINUE TO MONITOR AND MAINTAIN SAFETY Q15 MIN WITH THE HELP OF STAFF.
[2017-10-11 20:21] VITALS: BP 111/47
[2017-10-11] MEDS: METOPROLOL SUCCINATE 50 MG TAB.SR.24H PO SCH (21:53)
[2017-10-12] MEDS: ACETAMINOPHEN 325 MG TABLET PO PRN ×2 (01:44→12:00)
--- NOTE | 2017-10-12 01:44 | NUR ---
GPS RN NOTE, PATIENT HAS A COMPLAINT OF HEADACHE AT 2 OUT 10 ON THE PAIN SCALE. PATIENT VITAL SIGNS ARE STABLE. GAVE TYLENOL 650 MG PO Q6HR PRN ORDERED. WILL REASSESS PAIN AND I WILL CONTINUE TO MONITOR THIS PATIENT.
[2017-10-12] MEDS: LORAZEPAM 1 MG TABLET PO PRN (02:58)
--- NOTE | 2017-10-12 02:58 | NUR ---
GPS RN NOTE, PATIENT HAS A COMPLAINT ABOUT FEELING ANXIOUS ABOUT HER D/C TOMORROW AND IS REQUESTING ATIVAN AT THIS TIME. PATIENT VITAL SIGNS ARE STABLE. GAVE ATIVAN 1 MG PO Q6HR PRN ORDERED. WILL REASSESS FOR ANXIETY AND I WILL CONTINUE TO MONITOR THIS PATIENT.
[2017-10-12] MEDS: LEVOTHYROXINE SODIUM 125 MCG TABLET PO SCH (07:37)
[2017-10-12] MEDS: PANTOPRAZOLE 40 MG TABLET.DR PO SCH (07:37)
[2017-10-12 08:00] VITALS: BP 118/56
[2017-10-12] MEDS: MELOXICAM 7.5 MG TABLET PO SCH (08:26)
[2017-10-12] MEDS: CARBAMAZEPINE 200 MG TABLET PO SCH ×2 (08:26→12:00)
[2017-10-12] MEDS: buPROPion SR 150 MG TABLET.ER PO SCH (08:26)
[2017-10-12] MEDS: risperiDONE 1 MG TABLET PO SCH (08:26)
[2017-10-12] MEDS: AMLODIPINE BESYLATE 10 MG TABLET PO SCH ×2 (08:26→11:54)
[2017-10-12] MEDS: GEMFIBROZIL 600 MG TABLET PO SCH (08:26)
[2017-10-12] MEDS: ASPIRIN 81 MG TAB.CHEW PO SCH (08:26)
[2017-10-12] MEDS: FLUTICASONE PROPIONATE 16 GM BOTTLE NS SCH (08:29)
--- NOTE | 2017-10-12 09:05 | NUR ---
DR. JACKSON GAVE AN ORDER TO D/C HOLD AND D/C TO [facility] AND TO CONTINUE SAME MEDS INCLUDING PRN. PT. IS TO MAKE A FOLLOW UP WITH PSYCH AND MEDICAL DOCTORS.
--- NOTE | 2017-10-12 09:14 | NUR ---
SYLWIA spoke to Diana Shook ([phone]), pt's small animal caretaker, and informed her that the pt will be discharging to [facility] today at around 11am.
[2017-10-12 11:54] VITALS: BP 182/76
--- NOTE | 2017-10-12 12:40 | NUR ---
RN NOTES PT WAS DISCHARGED TO [facility] IN STABLE CONDITION, ACCOMPANIED BY EMT'S. PT DENIES ANY SI/HI AND SHOWS NO SIGNS OF DISTRESS. BELONGINGS WERE RETURNED TO PT AND DISCHARGE INSTRUCTIONS WERE GIVEN TO PT. PT VERBALIZES UNDERSTANDING AND WILL F/U WITH THE DOCTORS AT THE FACILITY. CAREGIVER DEQUAN WAS NOTIFIED OF DISCHARGE TO [facility]. REPORT WAS GIVEN TO LUISA (NURSE) FROM [facility], PRIOR TO DISCHARGING.
--- NOTE | 2017-10-12 12:54 | NUR ---
Discharge Note: Pt was discharged to [facility] ([facility]) located at [address] [place] [address]; ([phone]). She was transported via [facility] (Trip #[id number]) at 11:15am. Pts caregiver, Diana Shook ([phone]), was aware of this placement. Upon discharge, the pt denied suicidal and homicidal ideation as well as visual and auditory hallucinations. Pts mood was euthymic and her affect was very tense and anxious upon discharge. Pt will be under the care of psychiatrist, Dr. Norwood, who is located at [address] [place] [address]; ([phone]) and will be under the care of the oyster worker, Dr. Hermosillo, located at [address], [place] [address]; ([phone]).
== END 2017-10-12 12:40 | DRG 885 ==
LOC: GPS 19:15 → GPSOV1 10-05 21:06 → GPS 10-06 17:44
PROVIDERS: ADMIT Psychiatry & Neurology Psychiatry; ATTEND Psychiatry & Neurology Psychiatry
DX: F31.64 Bipolar disorder, current episode mixed, severe, with psychotic features (principal); E87.1 Hypo-osmolality and hyponatremia; Z68.27 Body mass index [BMI] 27.0-27.9, adult; F29 Unspecified psychosis not due to a substance or known physiological condition; E78.5 Hyperlipidemia, unspecified; E66.9 Obesity, unspecified; E03.9 Hypothyroidism, unspecified; Z73.6 Limitation of activities due to disability; I10 Essential (primary) hypertension; K21.9 Gastro-esophageal reflux disease without esophagitis; M19.90 Unspecified osteoarthritis, unspecified site; Z79.899 Other long term (current) drug therapy; Z96.651 Presence of right artificial knee joint; Z91.14 Patient's other noncompliance with medication regimen; Z87.891 Personal history of nicotine dependence; W18.30XA Fall on same level, unspecified, initial encounter; Y92.129 Unspecified place in nursing home as the place of occurrence of the external cause
CPT/HCPCS: 36415; 70450-TC; 80053-TC; 80061-TC; 80156-TC; 80164-TC; 82962-TC; 85025-TC; 87081-TC; J1630; J1815; J2060; Z7610